=== PATIENT | female | born 1995 | race African-American/Black ===

== ENCOUNTER 2023-02-24 11:50 | Emergency (ER) | payer MEDICAID ==
[~2023-02-24] VITALS: Ht 167.6 cm; Wt 95.0 kg
[2023-02-24 11:56] VITALS: O2SAT 100
[2023-02-24] MEDS ORDERED: FLUC150T46 PO (15:04)
[2023-02-24] MEDS ORDERED: CEPH500C2 MT (15:04)
[2023-02-24] MEDS ORDERED: CLOT15CR27 TP (15:04)
[2023-02-24 15:50] VITALS: BP 117/58; PULSE 90; RESP 16; TEMP 98.2
== END 2023-02-24 15:57 | disposition home or self-care (01) ==
LOC: ER 11:50
DX: L30.4 Erythema intertrigo (principal)
CPT/HCPCS: 99283